=== PATIENT | male | born 1995 | race Caucasian/White ===

== ENCOUNTER 2016-07-24 10:26 | Emergency (ER) | payer OTHER ==
[2016-07-24 12:04] VITALS: BP 152/90
--- NOTE | 2016-07-24 12:50 | UC ---
UC General HPI - HPI Summary HPI Summary: The patient comes in today for: 1. Vomiting: Onset: Yesterday. Palliative/provocative: Nothing makes his symptoms better or worse. Quality: Nausea Region: GI Severity: 5/10 today--yesterday, more. Time: Constant. Associated symptoms: Vomitin-5/24 hours. Diarrhea: 2 stools/24 hours. Urine output: "A little less frequent than usual. It is yellow (allergist/immunologist yellow). ABdominal pain: None. Better today than yesterday. Roommate had similar thing last week--had it for 2-3 days. He has been drinking water. Fevers: No known temperature, but he has awakened up with wet clothes and has had chills. He is feeling about 50% better now than this morning. * - History of Current Complaint Chief Complaint: UCGI Stated Complaint: VOMITING,WEAK,CHILLS Time Seen by Provider: 07/24/16 12:43 Hx Obtained From: Patient - Allergy/Home Medications Allergies/Adverse Reactions: Allergies Allergy/AdvReac Type Severity Reaction Status Date / Time No Known Allergies Allergy Verified 07/24/16 12:04 Home Medications: Home Medications NK [No Home Medications Reported] 07/24/16 [History Confirmed 07/24/16] PMH/Surg Hx/FS Hx/Imm Hx Previously Healthy: Yes Endocrine History Of: Denies: Diabetes, Thyroid Disease, Hyperthyroidism, Hypothyroidism, Dyslipidemia Cardiovascular History Of: Denies: Cardiac Disorders, Hypertension, Pacemaker/ICD, Myocardial Infarction , Congestive Heart Failure, Atrial Fibrillation, Deep Vein Thrombosis, Bleeding Disorders Respiratory History Of: Denies: COPD, Asthma, Bronchitis, Pneumonia, Pulmonary Embolism GI/ History Of: Denies: Gastroesophageal Reflux, Ulcer, Gastrointestinal Bleed, Gall Bladder Disease, Kidney Stones, Diverticulitis, Renal Disease, Urosepsis Neurological History Of: Denies: TIA, CVA, Dementia, Seizures, Migraine Psychological History Of: Denies: Anxiety, Depression, Bipolar Disorder, Schizophrenia, Post Traumatic Stress Disorder Cancer History Of: Denies: Lung Cancer, Colorectal Cancer, Breast Cancer, Prostate Cancer, Cervical Cancer Other History Of: Negative For: HIV, Hepatitis B, Hepatitis C, Anticoagulant Therapy - Surgical History Surgical History: Yes Surgery Procedure, Year, and Place: 2014 - Family History Known Family History: Negative: Cardiac Disease, Hypertension - Social History Occupation: Student Alcohol Use: Weekly Alcohol Amount: 12 Substance Use Type: None Smoking Status (MU): Never Smoked Tobacco Review of Systems Constitutional: Negative Skin: Negative Eyes: Negative ENT: Negative Respiratory: Negative Cardiovascular: Negative Gastrointestinal: Negative Genitourinary: Negative All Other Systems Reviewed And Are Negative: Yes Physical Exam Triage Information Reviewed: Yes Appearance: Well-Appearing, No Pain Distress, Well-Nourished Vital Signs: Initial Vital Signs Temp 98.6 F 07/24/16 11:57 Pulse 81 07/24/16 11:57 BP 152/90 07/24/16 11:57 Vital Signs Reviewed: Yes Eyes: Positive: Conjunctiva Clear. Negative: Discharge ENT: Positive: Hearing grossly normal. Negative: Pharyngeal erythema, Nasal congestion, Nasal drainage, TM bulging, TM dull, TM red, Tonsillar swelling, Tonsillar exudate Dental: Negative: Gross Decay/Caries @, Dental Fracture @ Neck: Positive: Supple, Nontender, No Lymphadenopathy. Negative: Nuchal Rigidity Respiratory: Positive: Chest non-tender, Lungs clear, No respiratory distress, No accessory muscle use. Negative: Rhonchi, Wheezing Cardiovascular: Positive: RRR, No Murmur Abdomen Description: Positive: Nontender, No Organomegaly, Soft. Negative: Distended, Guarding Musculoskeletal: Positive: Strength Intact, ROM Intact, No Edema Neurological: Positive: Alert, Muscle Tone Normal Psychological: Positive: Age Appropriate Behavior, Consolable Skin: Negative: rashes, breakdown Diagnostics - Laboratory Diagnostic Studies Completed/Ordered: Urine screen: specific gravity: 1.020. WBC: (-). Nitrite: (-). Blood: (tr). Protein: +1. Glucose: (-). Ketones: 3+ Course/Dx - Course Course Of Treatment: Patient was told of his diagnotic/treatment options. At this time he does not want any anti-nausea medication though he is still nauseated. - Differential Dx - Multi-Symptom Provider Diagnoses: Viral gastroenteritis Discharge - Discharge Plan Condition: Stable Disposition: HOME Patient Education Materials: Gastroenteritis (ED) Forms: *School Release Referrals: No Primary Care Phys,NOPCP [Primary Care Provider] - 1 Week (Please see your primary care provider or your school health center or us in a week of you are still having probelms. If you get worse, please be seen sooner. If you are feeling back to your normal self over the next several days, you won't need a follow-up evaluation.)
== END 2016-07-24 13:27 | disposition home or self-care (01) ==
LOC: EDSEX → UCCORT 10:26
DX: A08.4 Viral intestinal infection, unspecified (principal)
CPT/HCPCS: 81003; 99202; G0463